=== PATIENT | female | born 1940 | race Caucasian/White ===

== ENCOUNTER 2016-06-11 10:07 | Outpatient (CLI) | payer MEDICARE, OTHER | END 2016-06-11 10:08 | disposition home or self-care (01) | DX: R10.13 Epigastric pain (principal) ==

== ENCOUNTER 2016-07-08 10:00 | Outpatient (CLI) | payer MEDICARE, OTHER ==
[2016-07-08] MEDS ORDERED: IOPAMIDOL-300 100 ML VIAL IVP ONE (12:14)
--- NOTE | 2016-07-08 13:39 | CT Report ---
CT ABDOMEN WITH AND WITHOUT CONTRAST: 07/08/2016 CLINICAL INDICATION: Abnormal weight loss, epigastric pain, nausea. TECHNIQUE: As requested, pancreatic protocol CT was performed with and without 100 mL Isovue-300 int ravenously. COMPARISON: 07/11/2006 FINDINGS: Limited evaluation of the lung bases demonstrates minimal atelectasis. No pulmonary nodul e is appreciated. The pancreas demonstrates homogeneous attenuation prior to contrast administration , unremarkable arterial phase enhancement, and unremarkable portal venous phase enhancement. No panc reatic mass is identified. Small cysts in the kidneys and liver appear unremarkable and unchanged. The spleen and adrenal glands are normal. The gallbladder is not dilated. No bowel dilatation, free gas, or free fluid is present. Osseous structures demonstrate degenerative changes. IMPRESSION: NO EVIDENT PANCREATIC MASS. NO ADENOPATHY. STABLE TINY HEPATIC AND RENAL CYSTS. In accordance with CT protocol optimization, one or more of the following dose reduction techniques w ere utilized for this exam: automated exposure control, adjustment of mA and/or KV based on patient size, or use of iterative reconstructive technique. JOB #: [id number] EXT JOB #:[id number]
== END 2016-07-08 10:01 | disposition home or self-care (01) ==
LOC: DI 10:00
PROVIDERS: ATTEND Internal Medicine Gastroenterology
DX: K76.89 Other specified diseases of liver (principal); Q61.02 Congenital multiple renal cysts
CPT/HCPCS: 74170; Q9967

== ENCOUNTER 2016-09-03 07:45 | Outpatient (CLI) | payer MEDICARE, OTHER | END 2016-09-03 07:46 | disposition home or self-care (01) | DX: R63.4 Abnormal weight loss (principal); R07.82 Intercostal pain; R10.13 Epigastric pain; R11.0 Nausea; B96.81 Helicobacter pylori [H. pylori] as the cause of diseases classified elsewhere ==

== ENCOUNTER 2018-03-05 14:53 | Outpatient (CLI) | payer MEDICARE, OTHER ==
--- NOTE | 2018-03-07 07:48 | Ultrasound Report ---
Reason: CELIAC ARTERY STENOSIS Procedure Date: 03/05/2018 Accession Number: [id number] / [id number] Procedure: US - Arterial Visceral Complete CPT Code: FULL RESULT: EXAM: MESENTERIC/CELIAC ARTERY DOPPLER ULTRASOUND EXAM DATE: 03/05/2018 04:35 PM. CLINICAL HISTORY: Celiac artery stenosis. COMPARISON: ABDOMEN W/WO 07/08/2016 12:01 PM. TECHNIQUE: Real-time sonographic vascular imaging was performed by the health service coordinator through the mesenteric arterial system with a linear transducer utilizing color-flow, Doppler flow and spectral analysis. Multiple inside account representative static images were saved for review. FINDINGS: Review of prior CT demonstrated a high-grade stenosis of the celiac artery origin with area patent SMA origin. Vascular ultrasound shows elevated flow velocities suggesting greater than 70% stenosis attributed to the SMA origin with normal velocity seen in what is labeled the celiac axis. Aorta: 68cm/sec. Celiac [place]: Origin: 88 cm/sec. Proximal: 80 cm/sec. Mid: 78 cm/sec. Distal: 59 cm/sec. Hepatic Artery: 68 cm/sec. Splenic Artery: 115 cm/sec. Superior Mesenteric Artery Origin: 321 cm/sec. Proximal: 350 cm/sec. Mid: 328 cm/sec. Distal: 138 cm/sec. Inferior Mesenteric Artery: Origin: 124 cm/sec. Proximal: 162 cm/sec. Mid: 143 cm/sec. Distal: 73 cm/sec. IMPRESSION: 1. Elevated flow velocity consistent with greater than 70% stenosis in what is attributed to the SMA origin by vascular US. Given appearance of prior CT it's possible that elevated velocities are actually being measured in the proximal celiac axis. Consider followup with CTA for definitive evaluation. RADIA
== END 2018-03-05 14:54 | disposition home or self-care (01) ==
LOC: DI 14:53
PROVIDERS: ATTEND Internal Medicine Gastroenterology
DX: I77.4 Celiac artery compression syndrome (principal)
CPT/HCPCS: 93975

== ENCOUNTER 2018-03-13 10:59 | Outpatient (CLI) | payer MEDICARE, OTHER ==
[2018-03-13 18:10] LABS: CREATININE 0.9 mg/dL (0.4-1.0)
== END 2018-03-13 11:00 | disposition home or self-care (01) ==
LOC: LAB.F 10:59
PROVIDERS: ATTEND Physician Assistant
DX: R11.0 Nausea (principal)
CPT/HCPCS: 36415; 82565; 84520

== ENCOUNTER 2018-03-16 11:42 | Outpatient (CLI) | payer MEDICARE, OTHER ==
[2018-03-16] MEDS ORDERED: IOPAMIDOL-300 100 ML VIAL ONE (12:17)
[2018-03-16] MEDS ORDERED: IOPAMIDOL-300 100 ML VIAL IVP ONE (12:47)
--- NOTE | 2018-03-16 14:41 | CT Report ---
Reason: NAUSEA, ANOREXIA Procedure Date: 03/16/2018 Accession Number: [id number] / [id number] Procedure: CT - Abdomen W/WO CPT Code: FULL RESULT: EXAM: CT ABDOMEN WITHOUT AND WITH CONTRAST EXAM DATE: 03/16/2018 12:45 PM. HISTORY: Nausea, anorexia. COMPARISON: 07/08/2016. TECHNIQUE: Routine helical CT imaging was performed through the abdomen before and after administration of IV contrast: Isovue 300, 100 mL. Enteric contrast: No. Reconstruction: Coronal and sagittal. In accordance with CT protocol optimization, one or more of the following dose reduction techniques were utilized for this exam: automated exposure control, adjustment of mA and/or KV based on patient size, or use of iterative reconstructive technique. FINDINGS: Lung Bases: Unremarkable. Liver: Hepatic hypodensities which are too small to characterize are again seen. Otherwise, unremarkable. Gallbladder/Bile Ducts: Unremarkable. Spleen: Normal. Pancreas: Normal. No masses or ductal obstruction. Adrenal Glands: Normal. Kidneys: Hypodensities which are too small to characterize, otherwise no masses or hydronephrosis. Peritoneal Cavity/Bowel: Normal. No free fluid, free air or adenopathy. No masses or acute inflammatory process. The appendix is well visualized and normal. Vasculature: No aneurysms or other significant abnormality. Bones: No significant abnormality. Other: None. IMPRESSION: No evidence of pancreatic mass lesion. RADIA
== END 2018-03-16 11:43 | disposition home or self-care (01) ==
LOC: DI 11:42
PROVIDERS: ATTEND Physician Assistant
DX: R11.0 Nausea (principal); R63.0 Anorexia
CPT/HCPCS: 74170; Q9967

== ENCOUNTER 2019-05-17 10:09 | Outpatient (CLI) | payer MEDICARE, OTHER ==
--- NOTE | 2019-05-17 11:56 | Mammography Report ---
Reason: ROUTINE MAMMO Procedure Date: 05/17/2019 Accession Number: [id number] / [id number] Procedure: [facility] - Screening Mammo w/Noman CPT Code: Final Report FULL RESULT: EXAM: Screening Mammo w/Noman DATE: 05/17/2019 10:46 AM CLINICAL HISTORY: Nulliparous patient for routine screening TECHNIQUE: (B) - Bilateral CC and MLO views were obtained. COMPARISON: 06/08/2013, 05/18/2012, 03/12/2011 and 03/13/2010 PARENCHYMAL PATTERN: (D) - The breasts demonstrate heterogeneously dense fibroglandular parenchyma bilaterally. FINDINGS: No significant interval change. There are no suspicious masses, calcifications, or areas of distortion. IMPRESSION: Negative examination. BI-RADS category 1. RECOMMENDATION: (ANNUAL) - Recommend routine annual screening mammography. BI-RADS CATEGORY: (1) - Negative. STANDARD QUALIFYING STATEMENTS: 1. This examination was not reviewed with the aid of Computer-Aided Detection (CAD). 2. A negative or benign imaging report should not preclude biopsy if clinically suspicious findings are present. 3. Dense breasts may obscure an underlying neoplasm. 4. This examination was reviewed with the aid of 3D breast imaging (tomosynthesis).
== END 2019-05-17 10:10 | disposition home or self-care (01) ==
LOC: DI 10:09
PROVIDERS: ATTEND Internal Medicine
DX: Z12.31 Encounter for screening mammogram for malignant neoplasm of breast (principal)
CPT/HCPCS: 77063; 77067

== ENCOUNTER 2020-01-10 10:19 | Outpatient (CLI) | payer MEDICARE, OTHER ==
--- NOTE | 2020-01-10 12:10 | XRAY Report ---
PROCEDURE: Cervical Spine 2 View INDICATIONS: CERVICALGIA TECHNIQUE: 4 view(s) of the cervical spine were acquired. COMPARISON: None. FINDINGS: Bones: No fractures or dislocations to the T1 level. The lateral masses of C1 appear intact on the odontoid view. No suspicious bony lesions. Note is made of moderately severe degenerative disc dise ase at C5-6 and C6-7, with anterior and posterior osteophytes present to the degree that spinal and f oraminal stenosis likely is present. Soft tissues: No prevertebral soft tissue swelling. IMPRESSION: C5-6 and C6-7 moderately severe degenerative changes as noted. No recent trauma found. Reviewed by: Antony Mcdonald MD on 01/10/2020 12:09 PM PDT Approved by: Antony Mcdonald MD on 01/10/2020 12:09 PM PDT Station ID: [id number]
== END 2020-01-10 10:20 | disposition home or self-care (01) ==
LOC: DI.S 10:19
PROVIDERS: ATTEND Physician Assistant
DX: M50.322 Other cervical disc degeneration at C5-C6 level (principal); M47.812 Spondylosis without myelopathy or radiculopathy, cervical region
CPT/HCPCS: 72040

== ENCOUNTER 2020-02-13 08:00 | Outpatient (CLI) | payer MEDICARE, OTHER | END 2020-02-13 23:59 | disposition home or self-care (01) | LOC: LAB.R 08:00 | PROVIDERS: ATTEND Physician Assistant Medical | DX: N39.0 Urinary tract infection, site not specified (principal) | CPT/HCPCS: 87086 ==

== ENCOUNTER 2020-03-28 14:23 | Outpatient (CLI) | payer MEDICARE, OTHER ==
--- NOTE | 2020-03-28 16:06 | XRAY Report ---
PROCEDURE: Hips 3-4V BILAT INDICATIONS: BILATERAL HIP JOINT PAIN TECHNIQUE: 3 views of the hip were acquired. COMPARISON: X-ray lumbar spine 03/28/2020 FINDINGS: Bones: No fractures or dislocations. No suspicious bony lesions. The visualized pelvic ring appear s intact. Mild to moderate bilateral degenerative narrowing of the hip joints. Minimal paratracheal or osteophytes are present. No erosions. Mild degenerative changes are present within the lower lumba r spine. Soft tissues: No suspicious soft tissue calcifications or masses. IMPRESSION: Moderate bilateral hip arthritis. Reviewed by: Raisa Matos MD on 03/28/2020 4:04 PM PST Approved by: Raisa Matos MD on 03/28/2020 4:04 PM PST Station ID: [id number]
--- NOTE | 2020-03-28 16:07 | XRAY Report ---
PROCEDURE: Lumbar Spine 2 View INDICATIONS: PAIN IN BILATERAL LEGS, HIP JOINT PAIN TECHNIQUE: 2 views of the lumbar spine were acquired. COMPARISON: X-ray hip 03/28/2020 FINDINGS: Bones: 5 [id number]-lcd-ficlsod vertebrae are present. There is trace anterolisthesis of L4 on L5. There i s mild disc space narrowing at L1-L2, L2-3, moderate L4-5, mild to moderate L3-4, L5-S1. Mild foramin al narrowing is noted at L5-S1. No vertebral body compression fractures. No suspicious bony lesions. Soft tissues: Overlying bowel gas pattern is normal. No suspicious soft tissue calcifications. IMPRESSION: Degenerative changes most notable at L5-S1. Reviewed by: Raisa Matos MD on 03/28/2020 4:06 PM PST Approved by: Raisa Matos MD on 03/28/2020 4:06 PM PST Station ID: [id number]
== END 2020-03-28 14:24 | disposition home or self-care (01) ==
LOC: DI.S 14:23
PROVIDERS: ATTEND Nurse Practitioner Family
DX: M43.16 Spondylolisthesis, lumbar region (principal); M51.36 Other intervertebral disc degeneration, lumbar region; M48.061 Spinal stenosis, lumbar region without neurogenic claudication; M51.37 Other intervertebral disc degeneration, lumbosacral region; M48.07 Spinal stenosis, lumbosacral region; M16.0 Bilateral primary osteoarthritis of hip

== ENCOUNTER 2020-03-31 09:14 | Outpatient (CLI) | payer MEDICARE, OTHER ==
--- NOTE | 2020-03-31 15:09 | CT Report ---
PROCEDURE: LUMBAR SPINE WO INDICATIONS: PAIN IN BILAT LEGS TECHNIQUE: Noncontrast 3 mm thick sections acquired from the T12 level to the sacrum. Sagittal and coronal refo rmats were constructed. For radiation dose reduction, the following was used: automated exposure co ntrol, adjustment of mA and/or kV according to patient size. COMPARISON: X-ray lumbar spine 03/28/2020, CT abdomen 03/16/2018, 03/26/2016 FINDINGS: Image quality: Excellent. Bones: There is mild straightening of normal lumbar curvature. There is trace anterolisthesis of L4 on L5 and trace retrolisthesis of L5 on S1. No visualized fractures or dislocations. No suspicious os seous lesions are identified. There are prominent bridging anterior osteophytes at L3-4 and to a lesser degree L2-3 and L5-S1. Mult ilevel moderate to severe disc space narrowing is present with vacuum disc identified at L4-5. Small Schmorl's node is noted along the superior endplate of L5. Mild disc bulge is present at L1-L2, minim al L2-3, mild L3-4, L4-5 and L5-S1. Moderate spinal stenosis is present at L3-4, severe with canal co mpression at L4-5. There is moderate right and severe left foraminal narrowing at L3-4, severe bilate ral L4-5, moderate to severe bilateral L5-S1. Multilevel facet and ligamentum flavum hypertrophy are present. Soft tissues: No retroperitoneal masses or hematomas. Visualized aorta is normal in caliber. 9 mm left adrenal nodule is present, unchanged since 2016. Heart appears enlarged. IMPRESSION: 1. Multilevel disc bulges. 2. Multiple spinal stenosis most severe at L4-5 secondary to disc bulge with contributing effect of f acet/ligamentum flavum arthropathy. 3. Multilevel foraminal narrowing most severe at L3-4 and L4-5 secondary to facet arthropathy. Reviewed by: Raisa Matos MD on 03/31/2020 3:07 PM PST Approved by: Raisa Matos MD on 03/31/2020 3:07 PM PST Station ID: [id number]
== END 2020-03-31 09:15 | disposition home or self-care (01) ==
LOC: DI 09:14
PROVIDERS: ATTEND Nurse Practitioner Family
DX: M43.16 Spondylolisthesis, lumbar region (principal); M51.36 Other intervertebral disc degeneration, lumbar region; M48.061 Spinal stenosis, lumbar region without neurogenic claudication; M51.37 Other intervertebral disc degeneration, lumbosacral region; M48.07 Spinal stenosis, lumbosacral region; M51.46 Schmorl's nodes, lumbar region; M47.816 Spondylosis without myelopathy or radiculopathy, lumbar region
CPT/HCPCS: 72131

== ENCOUNTER 2020-05-10 13:27 | Emergency (ER) | payer MEDICARE, OTHER ==
--- OUTSIDE RECORDS SUMMARY | 2020-05-10 13:41 | EXTERNAL MEDICAL SUMMARY RPT | Continuity of Care Document ---
:1940 Demographics Phone Unavailable Preferred Language Slovak Marital Status Unknown Anglican Affiliation Unknown Race Unknown Ethnic Group Unknown Author Organization [facility] Address [address] [place] [address] Phone Care Team Providers Name Role Phone Andres, Provider Unavailable Unavailable Vivian PATINO, Unavailable Unavailable PERI ARELLANO Unavailable Unavailable BOBBY SARABIA Unavailable Unavailable Problems date description facility 2020-02-13 00:00:00 Urinary tract infection, site [facility] not specified 2020-02-13 00:00:00 Health-related behavior [facility] 2020-02-13 00:00:00 Tobacco use and exposure [facility] 2020-02-13 00:00:00 Never smoker [facility] 2020-02-13 00:00:00 Urine C&S [facility] 2020-02-13 00:00:00 Dysuria [facility] 2020-02-13 00:00:00 Exercise [facility] 2020-02-13 00:00:00 Acute urinary tract infection [facility] 2020-02-13 08:00 URINARY TRACT INFECTION, SITE [facility] NOT SPECIFIED Allergies date description facility No Known Drug Allergies [facility] NO KNOWN ENVIRONMENTAL ALLERGIES [facility] No Known Drug Allergies [facility] Medications date description facility 2020-02-13 00:00:00 null [facility] 2020-02-13 [facility] 2020-02-13 [facility]:00:[facility] 2020-02-13 00:00:00 [facility]AC[facility] 2020-02-13 00:00:00 [facility] 2020-02-13 00:00:00 null [facility] 2020-02-13 00:00:00 C[facility]OXACIN [facility]CL [facility] 2020-02-13 00:00:00 [facility] Procedures date description facility 2020-02-13 00:00:00 [facility] date description facility 2020-02-13 00[facility] date description facility 2020-02-13 00:00:00 POC URINALYSIS DIP [facility] date description facility 2020-02-13 00:00[facility]00 [facility] Results test status date ordered by attending specimen karyn e null P 2020-02-13 13:05:00 CLAR.11A Vivian Elizabeth 2 17:41:00 null F 2020-02-13 13:05:00 CLAR.11A Vivian Elizabeth 2 17:41:00 facility observation status value reference units lab abnor mal line range code notes [facility] unknown [facility] omposite[ CXP^CULTU RE IN PROGRESS. RESULTS TO FOLLOW.] [facility] unknown [facility] omposite[ NG^No growth] test status date ordered by attending specimen karyn e DIPSTICK_URINE_S unknown 2020-02-13 unknown unknown unkno wn TRIP_LOT_NUMBER 00:00:00 Urine_HCG_QC_Res unknown 2020-02-13 unknown unknown unkno wn ult_CLIA_Waived_ 00:00:00 protein_urine_se unknown 2020-02-13 unknown unknown unkno wn miquantitative_di 00:00:00 pstick_ glucose_urine_se unknown 2020-02-13 unknown unknown unkno wn miquantitative 00:00:00 Erythrocytes_are unknown 2020-02-13 unknown unknown unkno wn a_in_Urine_sedime 00:00:00 nt_by_Microscopy_ high_power_field RBC_urine_dipsti unknown 2020-02-13 unknown unknown unkno wn ck 00:00:00 Albumin_Presence unknown 2020-02-13 unknown unknown unkno wn _in_Urine 00:00:00 urine_color unknown 2020-02-13 unknown unknown unknown 00:00:00 bilirubin_urine unknown 2020-02-13 unknown unknown unknow n 00:00:00 ketones_urine_by unknown 2020-02-13 unknown unknown unkno wn _test_strip 00:00:00 nitrite_urine_se unknown 2020-02-13 unknown unknown unkno wn miquantitative 00:00:00 pH_urine_semiqua unknown 2020-02-13 unknown unknown unkno wn ntitative 00:00:00 specific_gravity unknown 2020-02-13 unknown unknown unkno wn _urine 00:00:00 urobilinogen_uri unknown 2020-02-13 unknown unknown unkno wn ne_semiquantitati 00:00:00 ve_dipstick_ leukocyte_estera unknown 2020-02-13 unknown unknown unkno wn se_urine_by_dipst 00:00:00 ick appearance_urine unknown 2020-02-13 unknown unknown unkno wn 00:00:00 urinalysis_routi unknown 2020-02-13 unknown unknown unkno wn ne 00:00:00 culture_status unknown 2020-02-13 unknown unknown unknown 00:00:00 Appearance_of_Ur unknown 2020-02-13 unknown unknown unkno wn ine 00:00:00 Bilirubin.total_ unknown 2020-02-13 unknown unknown unkno wn Presence_in_Urine 00:00:00 _by_Test_strip Color_of_Urine unknown 2020-02-13 unknown unknown unknown 00:00:00 Glucose_Mass_vol unknown 2020-02-13 unknown unknown unkno wn ume_in_Urine_by_T 00:00:00 est_strip Ketones_Mass_vol unknown 2020-02-13 unknown unknown unkno wn ume_in_Urine_by_T 00:00:00 est_strip Leukocyte_estera unknown 2020-02-13 unknown unknown unkno wn se_Presence_in_Ur 00:00:00 ine_by_Test_strip Nitrite_Presence unknown 2020-02-13 unknown unknown unkno wn _in_Urine_by_Test 00:00:00 _strip pH_of_Urine_by_T unknown 2020-02-13 unknown unknown unkno wn est_strip 00:00:00 Specific_gravity unknown 2020-02-13 unknown unknown unkno wn _of_Urine_by_Test 00:00:00 _strip Urobilinogen_Pre unknown 2020-02-13 unknown unknown unkno wn sence_in_Urine_by 00:00:00 _Test_strip DIPSTICK_URINE_S unknown 2020-02-13 unknown unknown unkno wn TRIP_LOT_NUMBER 00:00:00 Urine_HCG_QC_Res unknown 2020-02-13 unknown unknown unkno wn ult_CLIA_Waived_ 00:00:00 protein_urine_se unknown 2020-02-13 unknown unknown unkno wn miquantitative_di 00:00:00 pstick_ glucose_urine_se unknown 2020-02-13 unknown unknown unkno wn miquantitative 00:00:00 Erythrocytes_are unknown 2020-02-13 unknown unknown unkno wn a_in_Urine_sedime 00:00:00 nt_by_Microscopy_ high_power_field RBC_urine_dipsti unknown 2020-02-13 unknown unknown unkno wn ck 00:00:00 Albumin_Presence unknown 2020-02-13 unknown unknown unkno wn _in_Urine 00:00:00 urine_color unknown 2020-02-13 unknown unknown unknown 00:00:00 bilirubin_urine unknown 2020-02-13 unknown unknown unknow n 00:00:00 ketones_urine_by unknown 2020-02-13 unknown unknown unkno wn _test_strip 00:00:00 nitrite_urine_se unknown 2020-02-13 unknown unknown unkno wn miquantitative 00:00:00 pH_urine_semiqua unknown 2020-02-13 unknown unknown unkno wn ntitative 00:00:00 specific_gravity unknown 2020-02-13 unknown unknown unkno wn _urine 00:00:00 urobilinogen_uri unknown 2020-02-13 unknown unknown unkno wn ne_semiquantitati 00:00:00 ve_dipstick_ leukocyte_estera unknown 2020-02-13 unknown unknown unkno wn se_urine_by_dipst 00:00:00 ick appearance_urine unknown 2020-02-13 unknown unknown unkno wn 00:00:00 urinalysis_routi unknown 2020-02-13 unknown unknown unkno wn ne 00:00:00 culture_status unknown 2020-02-13 unknown unknown unknown 00:00:00 Appearance_of_Ur unknown 2020-02-13 unknown unknown unkno wn ine 00:00:00 Bilirubin.total_ unknown 2020-02-13 unknown unknown unkno wn Presence_in_Urine 00:00:00 _by_Test_strip Color_of_Urine unknown 2020-02-13 unknown unknown unknown 00:00:00 Glucose_Mass_vol unknown 2020-02-13 unknown unknown unkno wn ume_in_Urine_by_T 00:00:00 est_strip Ketones_Mass_vol unknown 2020-02-13 unknown unknown unkno wn ume_in_Urine_by_T 00:00:00 est_strip Leukocyte_estera unknown 2020-02-13 unknown unknown unkno wn se_Presence_in_Ur 00:00:00 ine_by_Test_strip Nitrite_Presence unknown 2020-02-13 unknown unknown unkno wn _in_Urine_by_Test 00:00:00 _strip pH_of_Urine_by_T unknown 2020-02-13 unknown unknown unkno wn est_strip 00:00:00 Specific_gravity unknown 2020-02-13 unknown unknown unkno wn _of_Urine_by_Test 00:00:00 _strip Urobilinogen_Pre unknown 2020-02-13 unknown unknown unkno wn sence_in_Urine_by 00:00:00 _Test_strip facility observation status value reference units lab abnor mal line range code notes [facility] DIPSTICK_URI unknown 2002 unknown _101 unknown unknown [facility] NE_STRIP_LOT_ 400 NUMBER [facility] Urine_HCG_QC unknown Yes unknown _114 unknown unknown [facility] _Result_CLIA_ 942 Waived_ [facility] protein_urin unknown negative unknown _118 unknown unknown [facility] e_semiquantit ative_dipstic k_ [facility] glucose_urin unknown negative unknown _123 unknown unknown [facility] e_semiquantit ative [facility] Erythrocytes unknown non-hemol unknown _139 unknown unknown [facility] _area_in_Urin yzed trace 45-1 e_sediment_by _Microscopy_h igh_power_fie ld [facility] RBC_urine_di unknown non-hemol unknown _170 unknown unknown [facility] pstick yzed trace 0005 [facility] Albumin_Pres unknown negative unknown _175 unknown unknown [facility] ence_[facility]rine 3[facility]3 [facility] urine_color unknown yellow unknown _275 u nknown unknown [facility] 1 [facility] bilirubin_ur unknown negative unknown _319 unknown [facility] ine [facility] ketones_urin unknown negative unknown _322 unknown unknown [facility] e_by_test_str ip [facility] nitrite_urin unknown negative unknown _323 unknown unknown [facility] e_semiquantit ative [facility] pH_urine_sem unknown 8 unknown _324 unknown unknown [facility] iquantitative [facility] specific_gra unknown 1.010 unknown _325 unknown unknown [facility] vity_urine [facility] urobilinogen unknown negative unknown _326 unknown unknown [facility] _urine_semiqu antitative_di pstick_ [facility] leukocyte_es unknown 3+ unknown _327 unknown unknown [facility] terase_urine_ by_dipstick [facility] appearance_u unknown clear unknown _328 unknown unknown [facility] rine [facility] urinalysis_r unknown Clean unknown _47 unknown unknown [facility] outine Catch [facility] culture_stat unknown Yes unknown _510 unknown unknown [facility] us 15 [facility] Appearance_o unknown clear unknown _576 unknown unknown [facility] f_Urine 7-9 [facility] Bilirubin.to unknown negative unknown _577 unknown unknown [facility] tal_Presence_ 0-3 in_Urine_by_T est_strip [facility] Color_of_Uri unknown yellow unknown _577 unknown unknown [facility] ne 8-6 [facility] Glucose_Mass unknown negative unknown _579 unknown unknown [facility] _volume_in_Ur 2-7 ine_by_Test_s trip [facility] Ketones_Mass unknown negative unknown _579 unknown unknown [facility] _volume_in_Ur 7-6 ine_by_Test_s trip [facility] Leukocyte_es unknown 3+ unknown _579 unknown unknown [facility] terase_Presen 9-2 ce_in_Urine_b y_Test_strip [facility] Nitrite_Pres unknown negative unknown _580 unknown unknown [facility] ence_in_Urine 2-4 _by_Test_stri p [facility] pH_of_Urine_ unknown 8 unknown _580 unknown unknown [facility] by_Test_strip 3-2 [facility] Specific_gra unknown 1.010 unknown _581 unknown unknown [facility] vity_of_Urine 1-5 _by_Test_stri p [facility] Urobilinogen unknown negative unknown _581 unknown unknown [facility] _Presence_in_ 8-0 Urine_by_Test _strip [facility] DIPSTICK_URI unknown 2002 unknown _101 unknown unknown [facility] NE_STRIP_LOT_ 400 NUMBER [facility] Urine_HCG_QC unknown Yes unknown _114 unknown unknown [facility] _Result_CLIA_ 942 Waived_ [facility] protein_urin unknown negative unknown _118 unknown unknown [facility] e_semiquantit ative_dipstic k_ [facility] glucose_urin unknown negative unknown _123 unknown unknown [facility] e_semiquantit ative [facility] Erythrocytes unknown non-hemol unknown _139 unknown unknown [facility] _area_in_Urin yzed trace 45-1 e_sediment_by _Microscopy_h igh_power_fie ld [facility] RBC_urine_di unknown non-hemol unknown _170 unknown unknown [facility] pstick yzed trace 0005 [facility] Albumin_Pres unknown negative unknown _175 unknown unknown [facility] ence_in_Urine 3-3 [facility] urine_color unknown yellow unknown _275 u nknown unknown [facility] 1 [facility] bilirubin_ur unknown negative unknown _319 unknown unknown [facility] ine [facility] ketones_urin unknown negative unknown _322 unknown unknown [facility] e_by_test_str ip [facility] nitrite_urin unknown negative unknown _323 unknown unknown [facility] e_semiquantit ative [facility] pH_urine_sem unknown 8 unknown _324 unknown unknown [facility] iquantitative [facility] specific_gra unknown 1.010 unknown _325 unknown unknown [facility] vity_urine [facility] urobilinogen unknown negative unknown _326 unknown unknown [facility] _urine_semiqu antitative_di pstick_ [facility] leukocyte_es unknown 3+ unknown _327 unknown unknown [facility] terase_urine_ by_dipstick [facility] appearance_u unknown clear unknown _328 unknown unknown [facility] rine [facility] urinalysis_r unknown Clean unknown _47 unknown unknown [facility] outine Catch [facility] culture_stat unknown Yes unknown _510 unknown unknown [facility] us 15 [facility] Appearance_o unknown clear unknown _576 unknown unknown [facility] f_Urine 7-9 [facility] Bilirubin.to unknown negative unknown _577 unknown unknown [facility] tal_Presence_ 0-3 in_Urine_by_T est_strip [facility] Color_of_Uri unknown yellow unknown _577 unknown unknown [facility] ne 8-6 [facility] Glucose_Mass unknown negative unknown _579 unknown unknown [facility] _volume_in_Ur 2-7 ine_by_Test_s trip [facility] Ketones_Mass unknown negative unknown _579 unknown unknown [facility] _volume_in_Ur 7-6 ine_by_Test_s trip [facility] Leukocyte_es unknown 3+ unknown _579 unknown unknown [facility] terase_Presen 9-2 ce_in_Urine_b y_Test_strip [facility] Nitrite_Pres unknown negative unknown _580 unknown unknown [facility] ence_in_Urine 2-4 _by_Test_stri p [facility] pH_of_Urine_ unknown 8 unknown _580 unknown unknown [facility] by_Test_strip 3-2 [facility] Specific_gra unknown 1.010 unknown _581 unknown unknown [facility] vity_of_Urine 1-5 _by_Test_stri p [facility] Urobilinogen unknown negative unknown _581 unknown unknown [facility] _Presence_in_ 8-0 Urine_by_Test _strip Social History date description facility 2020-02-13 00:00:00 [facility] Social History date description facility 2020-02-13 00:00:00 [facility] date description facility [id number]
[2020-05-10] MEDS ORDERED: ERYTHROMYCIN OPHTH OINT 1 GM TUBE RIGHTEYE STA (14:21)
--- NOTE | 2020-05-10 14:23 | ED Physician Documentation ---
History of Present Illness - Stated complaint Stated Complaint: LEFT EYE PX - Chief complaint Chief Complaint: Heent - Additonal information Additional information: 79-year-old female presents emergency department for evaluation of acute right eye pain. She reports to me that the eye felt like she had gotten a hair or lash in it. She irrigated her eye but was unable to find any debris. Since then she has had increasing amount of pain and some mild especially from the lower part of the eye. She denies any vision changes fevers headaches. Does not wear contact lenses does sometimes wear corrective reading lenses. Review of Systems Constitutional: reports: Reviewed and negative Eyes: reports: Discharge, Irritation. denies: Loss of vision, Decreased vision, Photophobia Ears: reports: Reviewed and negative Nose: reports: Reviewed and negative Throat: reports: Reviewed and negative Cardiac: reports: Reviewed and negative Respiratory: reports: Reviewed and negative PD PAST MEDICAL HISTORY - Past Medical History Past Medical History: Yes Cardiovascular: Hypertension - Past Surgical History Past Surgical History: Yes General: Appendectomy /CASE RESOURCE MANAGER: Hysterectomy - Present Medications Home Medications: Ambulatory Orders Medication Instructions Recorded Confirmed Estradiol [Vagifem] 10 mcg VG DAILY 08/30/13 05/10/20 amLODIPine [Norvasc] 1 tab PO DAILY 04/08/16 05/10/20 Erythromycin Base [Erythromycin 1 gm OP TID #1 oint...g. 05/10/20 Ophthalmic Ointment] Estrogens, Conjugated Cream 1 applic TOP PRN PRN 05/10/20 05/10/20 [Premarin Cream] - Allergies Allergies/Adverse Reactions: Allergies Allergy/AdvReac Type Severity Reaction Status Date / Time No Known Drug Allergies Allergy Verified 05/10/20 13:35 - Social History Does the pt smoke?: No Smoking Status: Never smoker Does the pt drink ETOH?: Yes Does the pt have substance abuse?: No - Immunizations Immunizations are current?: Yes - POLST Patient has POLST: No PD ED PE EXPANDED - Eyes Eyes: Right eye (Positive fluorescein uptake on lower conjunctiva between 4 and 7:00. Posterior retina is visualized without any obvious bruising bleeding hyphema. No floaters in the eye. Small amount of clear drainage without matting seen.), Corneal abrasion. No: Eyelid embedded FB, Nl conjunctiva/sclera - Neck Neck: Supple w/out meningeal sx. No: Adenopathy Results - Vitals Vitals: Vital Signs - 24 hr 05/10/20 13:31 Temperature 35.9 C L Heart Rate 83 Respiratory 14 Rate Blood Pressure 156/93 H O2 Saturation 97 Oxygen O2 Source Room air PD MEDICAL DECISION MAKING - ED course Complexity details: reviewed results, re-evaluated patient, considered differential, d/w patient ED course: 79-year-old female presents emergency department for evaluation of acute right eye pain. She had a sensation of a foreign body in the eye. On exam she does have a very superficial corneal abrasion at the juncture of the iris in the conjunctiva. Will write a prescription for erythromycin ointment. 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 Emergent return precautions discussed Departure - Departure Disposition: 01 Home, Self Care Clinical Impression: Conjunctival abrasion Qualifiers: Encounter type: initial encounter Laterality: right Qualified Code(s): S05.01XA - Injury of conjunctiva and corneal abrasion without foreign body, right eye, initial encounter Condition: Stable Record reviewed to determine appropriate education?: Yes Prescriptions: Erythromycin Base [Erythromycin Ophthalmic Ointment] 1 gm OP TID #1 oint...g. Comments: You do have a very superficial corneal abrasion on the lower part of your right eye. Please apply the antibiotic ointment to the right eye 2-3 times a day. I would expect that your discomfort is markedly better over the next 24 hours. Get a follow-up with your workgroup leader or scratcher in 1 week to ensure full resolution.
[2020-05-10 14:34] VITALS: BP 149/67
== END 2020-05-10 14:38 | disposition home or self-care (01) ==
LOC: ED 13:27
DX: S05.01XA Injury of conjunctiva and corneal abrasion without foreign body, right eye, initial encounter (principal); X58.XXXA Exposure to other specified factors, initial encounter; I10 Essential (primary) hypertension
CPT/HCPCS: 99282; 99283; J3490

== ENCOUNTER 2020-06-14 14:40 | Outpatient (CLI) | payer MEDICARE, OTHER ==
[2020-06-14] MEDS ORDERED: IOVERSOL 320 100 ML VIAL IVP ONE ×2 (14:55→16:44)
[2020-06-14] MEDS ORDERED: IOPAMIDOL-300 50 ML VIAL ONE (14:55)
[2020-06-14 15:29] LABS: ALBUMIN 3.8 g/dL (3.2-5.5); ALBUMIN/GLOBULIN RATIO 1.2 (1.0-2.2); BILIRUBIN,TOTAL 0.2 mg/dL (0.2-1.0); CALCIUM 9.4 mg/dL (8.5-10.3); CREATININE 0.7 mg/dL (0.4-1.0); TOTAL PROTEIN 6.9 g/dL (6.7-8.2)
[2020-06-14] MEDS ORDERED: IOPAMIDOL-300 50 ML VIAL PO ONE (16:43)
--- NOTE | 2020-06-15 14:07 | CT Report ---
PROCEDURE: Abdomen/Pelvis W INDICATIONS: LLQ PAIN CONTRAST: IV CONTRAST: Optiray 320 ml: 100 PO CONTRAST: Isovue 300 ml50 TECHNIQUE: After the administration of nonionic contrast, 5 mm thick sections acquired from the diaphragms to th e symphysis. 5 mm thick coronal and sagittal reformats were acquired. For radiation dose reduction, the following was used: automated exposure control, adjustment of mA and/or kV according to patient size. COMPARISON: Prior CT abdomen 03/16/2018.. FINDINGS: Image quality: Excellent. ABDOMEN: Lung bases: Lung bases are clear. Heart size is normal. Solid organs: Liver and spleen are normal in size and enhancement. Gallbladder appears normal Bili yves system is non dilated. Pancreas enhances normally. No adrenal nodules. Kidneys demonstrate nor mal size and enhancement, without hydronephrosis. Peritoneum and bowel: Bowel loops demonstrate normal wall thickness and caliber however there is mod erate bilateral colonic obstipation over the abdomen and pelvis.. No free fluid or air. Nodes and vessels: No retroperitoneal or mesenteric adenopathy by size criteria. Aorta and inferior vena cava are normal in size. Miscellaneous: No ventral hernias. PELVIS: Genitourinary: Bladder wall thickness is normal. No adnexal pathology is seen bilaterally. Apparent prior hysterectomy. Miscellaneous: No inguinal hernias or adenopathy. Moderate right and left colon colonic obstipation . Bones: No suspicious bony lesions. No vertebral body compression fractures. IMPRESSION: Colonic obstipation is found but there is no evidence of diverticulitis or bowel inflamm ation. A source of current symptomatology otherwise is not found. Reviewed by: Antony Mcdonald MD on 06/15/2020 11:36 AM [facility] Approved by: Antony Mcdonald MD on 06/15/2020 11:36 AM PST Station ID: [id number]
== END 2020-06-14 14:41 | disposition home or self-care (01) ==
LOC: DI 14:40
PROVIDERS: ATTEND Nurse Practitioner Family
DX: R10.32 Left lower quadrant pain (principal); K59.00 Constipation, unspecified
CPT/HCPCS: 36415; 74177; 80053; Q9967

== ENCOUNTER 2020-12-18 09:13 | Outpatient (CLI) | payer MEDICARE, OTHER ==
[2020-12-18] MEDS ORDERED: GADOBUTROL 7.5 MMOL/7.5 ML VIAL ONE (10:41)
--- NOTE | 2020-12-18 10:56 | MRI Report ---
PROCEDURE: Lumbar Spine W/WO INDICATIONS: LOW BACK PAIN INFECTION SUSPECTED CONTRAST: IV CONTRAST: Gadavist ml: 6.3 TECHNIQUE: Noncontrast sagittal T1 spin echo and T2 fast spin echo, sagittal STIR, axial T1 and T2 fast spin ech o through the lumbar spine. In cases with scoliosis, additional coronal T2 fast spin echo may be per formed. After the administration of contrast, sagittal and axial T1 spin echo with fat saturation th rough the lumbar spine. COMPARISON: Correlation is made with prior lumbar spine CT, 03/31/2020 FINDINGS: Image quality: Motion artifact is noted. Alignment and curvature: There is mild anterolisthesis seen at the L4-L5 level. Marrow: The bone marrow is diffusely heterogeneous. Several abnormal foci of bone marrow signal can b e seen, which are most prominent within the posterior inferior left aspect of the L3 vertebral body ( series 901 image 7) and the posterior lateral left aspect of the L4 vertebral body (series 901 image is 5 and 6), with decreased T1-weighted signal with increased STIR signal and increased enhancement. No acute vertebral body compression fractures. At the superior endplate of the L4 vertebral body, th ere is a focus of increased STIR signal and enhancement, as on series 901 image 8, which is situated to a subacute Schmorl's node. Spinal cord: Conus medullaris terminates at the L1 level. Visualized spinal cord demonstrates lizz l signal, without suspicious enhancement. Paraspinous soft tissues: No paravertebral masses or abnormal enhancement. T12-L1: Normal in appearance. L1-L2: Normal in appearance. L2-L3: Normal in appearance. L3-L4: The disc height is well-preserved. There is loss of disc signal seen. Mild to moderate disc bulge is seen, which is eccentric to the left. At least moderate facet hypertrophy is seen at this le mariel. There is moderate left-sided and no right-sided neuroforaminal narrowing seen. Mild to moderate central canal narrowing is seen. L4-L5: Mild to moderate loss of disc height and disc signal can be seen. At least moderate disc bul ge is seen. Prominent facet hypertrophy is seen. Fluid is seen within the facet joints themselves. T here is moderate to severe left-sided and at least moderate right-sided neuroforaminal narrowing seen . At least moderate central canal narrowing is seen, as on series 801 image 11. L5-S1: The disc height is well-preserved. There is loss of disc signal seen. Mild disc bulge is se en. Mild facet hypertrophy is seen. No significant neural foraminal or central canal narrowing ca n be seen. IMPRESSION: No findings are seen that are suspicious for infection. No findings of discitis or osteomyelitis can be seen. No epidural abscess. L3 and L4 enhancing foci are seen, which are at least moderate suspicious for metastatic disease in a patient of this age. Please correlate with known patient history. If clinically appropriate, please consider a whole body nuclear medicine bone scan for further evaluation for bony metastatic disease. Multiple levels of degenerative change are seen, which are overall worst at the L4-L5 level. There is a likely subacute Schmorl's node at the superior endplate of L4. Reviewed by: Kuldeep Valadez MD on 12/18/2020 9:55 AM LIZY Approved by: Kuldeep Valadez MD on 12/18/2020 9:55 AM LIZY Station ID: [id number]
[2020-12-18] MEDS ORDERED: GADOBUTROL 7.5 MMOL/7.5 ML VIAL IVP ONE (15:44)
== END 2020-12-18 09:14 | disposition home or self-care (01) ==
LOC: DI 09:13
PROVIDERS: ATTEND Electrodiagnostic Medicine
DX: M47.816 Spondylosis without myelopathy or radiculopathy, lumbar region (principal); M47.817 Spondylosis without myelopathy or radiculopathy, lumbosacral region; M51.36 Other intervertebral disc degeneration, lumbar region; R93.7 Abnormal findings on diagnostic imaging of other parts of musculoskeletal system
CPT/HCPCS: 72158; A9585

== ENCOUNTER 2021-02-17 08:00 | Outpatient (CLI) | payer MEDICARE, OTHER ==
[2021-02-17 23:10] LABS: BACTERIAL VAGINOSIS DNA NEGATIVE (NEGATIVE); CANDIDA GLABRATA DNA NEGATIVE (NEGATIVE); CANDIDA GROUP DNA NEGATIVE (NEGATIVE); CANDIDA KRUSEI DNA NEGATIVE (NEGATIVE); TRICHOMONAS VAGINALIS DNA NEGATIVE (NEGATIVE)
== END 2021-02-17 08:01 | disposition home or self-care (01) ==
LOC: LAB 08:00
PROVIDERS: ATTEND Physician Assistant Medical
DX: N39.0 Urinary tract infection, site not specified (principal); R10.2 Pelvic and perineal pain
CPT/HCPCS: 87086; 87661; 87801

== ENCOUNTER 2021-11-21 09:19 | Outpatient (CLI) | payer MEDICARE, OTHER ==
--- NOTE | 2021-11-21 13:18 | XRAY Report ---
PROCEDURE: Foot 3 View RT INDICATIONS: RIGHT FOOT PAIN TECHNIQUE: 3 views of the foot were acquired. COMPARISON: Plain films of the right foot dated 08/30/2014 FINDINGS: Bones: No fractures or dislocations. No suspicious bony lesions. There is severe joint space narro wing and moderate articular osteophyte formation at the first metatarsophalangeal joint, as before. M ild periarticular osteophyte formation at the interphalangeal joints of the digits, as well as the ti biotalar and talonavicular joints. Soft tissues: No tibiotalar joint effusion. Achilles tendon appears normal. IMPRESSION: Osteoarthritis. No acute fracture. No osseous lesion. If symptoms and/or clinical suspicion for patho logy continue, further assessment with repeat plain films, or advanced imaging (e.g., CT, MRI, or bon e scan) is recommended for further assessment. Reviewed by: Jeffy Jett MD on 11/21/2021 1:17 PM PDT Approved by: Jeffy Jett MD on 11/21/2021 1:17 PM PDT Station ID: [id number]
== END 2021-11-21 09:20 | disposition home or self-care (01) ==
LOC: DI.S 09:19
PROVIDERS: ATTEND Podiatrist
DX: M19.071 Primary osteoarthritis, right ankle and foot (principal)

== ENCOUNTER 2022-02-14 13:49 | Outpatient (CLI) | payer MEDICARE, OTHER ==
--- NOTE | 2022-02-15 09:44 | Mammography Report ---
BILATERAL DIGITAL SCREENING MAMMOGRAM 3D/2D: 02/14/2022 CLINICAL: Routine screening. Comparison is made to exams dated: 05/17/2019 mammogram, 06/08/2013 mammogram, and 05/18/2012 mammogram - [facility]. Both breasts are heterogeneously dense, which may obscure small masses (category c / 51-75% glandular tissue). There is a possible oval asymmetry with an indistinct margin in the right breast anterior depth super ior region seen on the mediolateral oblique view only. No other significant masses, calcifications, or other findings are seen in either breast. IMPRESSION: INCOMPLETE: NEEDS ADDITIONAL IMAGING EVALUATION The possible oval asymmetry in the right breast is indeterminate. Additional views with possible ult rasound are recommended. Based on the Tyrer Cuzick model (a risk assessment model) the patients lifetime risk is 1.1% and her 10 year risk is 0.0%. According to the ACR, ACS, and NCCN guidelines, an annual breast MRI exam lorena g with mammogram is recommended if the patients lifetime risk is 20% or greater. This exam was interpreted at Station ID: [id number]. NOTE: For mammograms, a report in lay terms will be sent to the patient. Approximately 15% of breast malignancies will not be visualized mammographically. In the management of a palpable breast mass, a negative mammogram must not discourage biopsy of a clinically suspicious lesion. Electronically Signed By: Charley thomas/jayy:02/14/2022 21:50:33 ACR BI-RADS Category 0: Incomplete 3340F PARENCHYMAL PATTERN: (D) - The breast(s) demonstrate(s) heterogeneously dense fibroglandular pargabbiey ma. BI-RADS CATEGORY: (0) - 0 Mammo and [place] [id number] Immediate follow-up LATERALITY: (B)
== END 2022-02-14 13:50 | disposition home or self-care (01) ==
LOC: DI 13:49
PROVIDERS: ATTEND Nurse Practitioner Family
DX: Z12.31 Encounter for screening mammogram for malignant neoplasm of breast (principal); R92.8 Other abnormal and inconclusive findings on diagnostic imaging of breast

== ENCOUNTER 2022-02-14 13:51 | Outpatient (CLI) | payer MEDICARE, OTHER ==
--- NOTE | 2022-02-14 15:21 | DEXA Report ---
PROCEDURE: Dexa Spine and/or Hip INDICATIONS: POSTMENOPAUSAL TECHNIQUE: Dual energy x-ray absorptiometry (DXA) was performed on a [employer] System. Regions measur ed are the AP Spine, femoral neck, and if needed forearm. COMPARISON: None. FINDINGS: Lumbar Spine: Bone Mineral Density 1.391 g/cm/cm,T score 1.8, normal Left Hip: Bone Mineral Density 1.334 g/cm/cm,T score 2.6, normal Left Femoral Neck: Bone Mineral Density 1.06 to g/cm/cm, T score 0.2, normal (T score greater or equal to -1.0: NORMAL) (T score from -1.1 to -2.4: OSTEOPENIA) (T score less than or equal to -2.5 to: OSTEOPOROSIS) Impression: Normal bone mineral density. Patients with diagnosis of osteoporosis or osteopenia should have regular bone mineral density assess ment. For those eligible for Medicare, routine testing is allowed once every 2 years. Testing frequ ency can be increased for patients who have rapidly progressing disease or for those who are receivin g medical therapy to restore bone mass. Reviewed by: Raisa Matos MD on 02/14/2022 3:19 PM PDT Approved by: Raisa Matos MD on 02/14/2022 3:19 PM PDT Station ID: [id number]
== END 2022-02-14 13:52 | disposition home or self-care (01) ==
LOC: DI 13:51
PROVIDERS: ATTEND Nurse Practitioner Family
DX: Z78.0 Asymptomatic menopausal state (principal)

== ENCOUNTER 2022-02-27 09:36 | Outpatient (CLI) | payer MEDICARE, OTHER ==
--- NOTE | 2022-02-27 12:13 | Mammography Report ---
UNILATERAL RIGHT DIGITAL DIAGNOSTIC MAMMOGRAM 3D/2D WITH SPOT COMPRESSION: 02/27/2022 CLINICAL: Patient returns today to evaluate an asymmetry in the right breast. Comparison is made to exams dated: 02/14/2022 mammogram, 05/17/2019 mammogram, 06/08/2013 mammogram, a nd 05/18/2012 mammogram - [facility]. The right breast is heterogeneously dense, which may obscure small masses (category c / 51-75% glandu lar tissue). With focal spot compression, and additional views, the abnormality seen in the right breast in the an terior depth in the superior medial quadrant on screening mammography resolves. No significant masses, calcifications, or other findings are seen in the breast. IMPRESSION: NEGATIVE Resolution of screening mammography abnormality with additional views. There is no mammographic evide nce of malignancy. Return to annual mammogram screening schedule is recommended. Findings and recommendations were conveyed to the patient at time of exam. Based on the Tyrer Cuzick model (a risk assessment model) the patients lifetime risk is 1.0% and her 10 year risk is 0.0%. According to the ACR, ACS, and NCCN guidelines, an annual breast MRI exam lorena g with mammogram is recommended if the patients lifetime risk is 20% or greater. This exam was interpreted at Station ID: [id number]. NOTE: For mammograms, a report in lay terms will be sent to the patient. Approximately 15% of breast malignancies will not be visualized mammographically. In the management of a palpable breast mass, a negative mammogram must not discourage biopsy of a clinically suspicious lesion. Electronically Signed By: Charley thomas/:02/27/2022 10:31:26 ACR BI-RADS Category 1: Negative 3341F PARENCHYMAL PATTERN: (D) - The breast(s) demonstrate(s) heterogeneously dense fibroglandular pargabbiey ma. BI-RADS CATEGORY: (1) - 1 Mammogram [id number] return to screening LATERALITY: (B)
== END 2022-02-27 09:37 | disposition home or self-care (01) ==
LOC: DI 09:36
PROVIDERS: ATTEND Nurse Practitioner Family
DX: R92.8 Other abnormal and inconclusive findings on diagnostic imaging of breast (principal)

== ENCOUNTER 2022-10-18 07:42 | Outpatient (CLI) | payer MEDICARE, OTHER ==
[2022-10-18 07:59] LABS: CREATININE 0.8 mg/dL (0.4-1.0)
[2022-10-18] MEDS ORDERED: iohexoL-300 100 ML VIAL ONE (08:12)
[2022-10-18] MEDS ORDERED: iohexoL-300 100 ML VIAL IVP ONE (09:05)
--- NOTE | 2022-10-21 16:27 | CT Report ---
PROCEDURE: ABDOMEN W/WO INDICATIONS: ADRENAL NODULE CONTRAST: 100ml omni 300 TECHNIQUE: [address] scan of the adrenal glands was performed. Non-contrast and multiphasic contrast images wer e recorded and evaluated at appropriate window settings. Reformats: coronal and sagittal. For radiati on dose reduction, the following was used: automated exposure control, adjustment of mA and/or kV acc ording to patient size. COMPARISON: CT 06/14/2020 FINDINGS: Image quality: Excellent. Adrenal Glands: No measurable adrenal nodules. There is left-sided adrenal nodularity, measuring no g reater than 8 mm; this is too small to accurately characterize with contrast enhancement, but is stab le from prior. OTHER: Lung bases and heart: Unremarkable. Liver: No solid mass. Gallbladder and biliary tree: No radiopaque stones or wall thickening. No biliary dilation. Spleen: No splenomegaly. Pancreas: No pancreatic ductal dilation. Kidneys and ureters: No hydronephrosis. No renal cystic lesion which requires follow up. No solid mas s. Bowel and peritoneum: No bowel distension. No pathologic free fluid. Lymph nodes: No central or retroperitoneal adenopathy. Vessels: No infrarenal aortic aneurysm. Bones: No aggressive osseous abnormality. Other: Small focal hernia containing fat. IMPRESSION: No measurable adrenal nodules. There is left-sided adrenal nodularity, measuring no greater than 8 mm ; this is too small to accurately characterize with contrast enhancement, but is stable since 2020, a nd therefore statistically benign. Reviewed by: Rj Phelps on 10/21/2022 4:26 PM PDT Approved by: Rj Phelps on 10/21/2022 4:26 PM PDT Station ID: [id number]
== END 2022-10-18 07:43 | disposition home or self-care (01) ==
LOC: DI 07:42
PROVIDERS: ATTEND Obstetrics & Gynecology
DX: E27.8 Other specified disorders of adrenal gland (principal)
CPT/HCPCS: 36415; 74170; 82565; Q9967

== ENCOUNTER 2023-04-23 08:00 | Outpatient (CLI) | payer MEDICARE, OTHER | END 2023-04-23 08:01 | disposition home or self-care (01) | LOC: LAB.S 08:00 | PROVIDERS: ATTEND Registered Nurse | DX: R07.0 Pain in throat (principal) ==

== ENCOUNTER 2023-04-30 09:20 | Outpatient (CLI) | payer MEDICARE, OTHER ==
--- NOTE | 2023-04-30 13:02 | XRAY Report ---
PROCEDURE: Chest 2V INDICATIONS: CHEST CONGESTION TECHNIQUE: 2 views of the chest were acquired. COMPARISON: Chest radiograph on February 06, 2015. FINDINGS: Surgical changes and devices: None. Lungs and pleura: No pleural effusions or pneumothorax. Hyperexpansion of the lungs with flattening of the diaphragm. Questionable right apical lung nodule versus costochondral calcification measuring 6 mm. No focal pulmonary consolidation. Mediastinum: Mediastinal contours appear normal. Heart size is normal. Bones and chest wall: No suspicious bony lesions. Overlying soft tissues appear unremarkable. IMPRESSION: 1.Questionable right apical lung nodule versus costochondral calcification. 6 mm. In the setting of C OPD/emphysema, consider a noncontrast CT chest for further evaluation. 2.No focal pulmonary consolidation to suggest infection. Reviewed by: Marko Beatty MD on 04/30/2023 1:00 PM PST Approved by: Marko Beatty MD on 04/30/2023 1:00 PM PST Station ID: [id number]
== END 2023-04-30 09:21 | disposition home or self-care (01) ==
LOC: DI.S 09:20
PROVIDERS: ATTEND Registered Nurse
DX: R09.89 Other specified symptoms and signs involving the circulatory and respiratory systems (principal)

== ENCOUNTER 2023-05-24 14:23 | Outpatient (CLI) | payer MEDICARE, OTHER ==
--- NOTE | 2023-05-24 14:49 | XRAY Report ---
PROCEDURE: Abdomen Acute INDICATIONS: ACUTE ABDOMINAL PAIN TECHNIQUE: 2 views of the abdomen were acquired. COMPARISON: None. FINDINGS: Surgical changes and devices: None. Chest: Lungs are clear. Heart size is normal. No pleural effusions. No pneumoperitoneum. Bowel: No pneumoperitoneum. The bowel gas pattern is normal. Moderate right colonic stool. Soft tissues: No masses; visualized solid organ contours appear normal in size. No suspicious abdom inal calcifications. Bones: No suspicious bony abnormalities. IMPRESSION: Moderate right colonic stool. Reviewed by: Raisa Matos MD on 05/24/2023 2:48 PM PST Approved by: Raisa Matos MD on 05/24/2023 2:48 PM PST Station ID: [id number]
== END 2023-05-24 23:59 | disposition home or self-care (01) ==
LOC: DI.S 14:23
PROVIDERS: ATTEND Physician Assistant Medical
DX: R10.9 Unspecified abdominal pain (principal)

== ENCOUNTER 2023-08-08 07:34 | Outpatient (CLI) | payer MEDICARE, OTHER ==
--- NOTE | 2023-08-08 10:33 | Ultrasound Report ---
PROCEDURE: Pelvic Limited INDICATIONS: Right Inguinal pain TECHNIQUE: Real-time transabdominal scanning was performed of the right inguinal region, with image documentatio n. COMPARISON: CT abdomen pelvis. FINDINGS: No inguinal hernia is identified. Likely lymph node with normal fatty hilum adjacent to a vessel measuring 1.2 x 0.7 x 1.0 cm, within n ormal limits for size. IMPRESSION: 1.No inguinal hernia is seen. 2.Normal-appearing right inguinal lymph node. Reviewed by: Estuardo Hoang MD on 08/08/2023 10:31 AM PDT Approved by: Estuardo Hoang MD on 08/08/2023 10:31 AM PDT Station ID: [id number]
== END 2023-08-08 07:35 | disposition home or self-care (01) ==
LOC: DI 07:34
PROVIDERS: ATTEND Nurse Practitioner
DX: R10.31 Right lower quadrant pain (principal)